=== PATIENT | female | born 1970 | race Caucasian/White ===

== ENCOUNTER 2021-06-09 10:49 | Emergency (ER) | payer BC, OTHER ==
[~2021-06-09 10:49] MED LIST: Iopamidol-370 76% 500 ML 1 ML ONE
[2021-06-09] MEDS ORDERED: Morphine 4 MG/ML VIAL ONE (12:13)
[2021-06-09] MEDS ORDERED: Ondansetron PF 4 MG/2 ML Vial ONE (12:14)
[2021-06-09 12:16] LABS: Bilirubin Negative (Negative); Blood, Urine Negative (Negative); Clarity Clear (Clear); Glucose, Urine (Dipstick) >=1000 mg/dL (Negative); Ketone, Urine Trace mg/dL (Negative); Leukocyte Negative Leu/uL (Negative); Nitrite Negative (Negative); Protein, Urine (Dipstick) Negative (Neg-Trace); Specific Gravity, Urine 1.025 (1.002-1.036); Urobilinogen Normal mg/dL (Less than 2)
[2021-06-09 12:17] LABS: #Eosinphils 0.2 thou/uL (0.0-0.7); #Lymphocytes 2.2 thou/uL (1.20-3.40); #Monocytes 0.6 thou/uL (0.11-0.59); #Neutrophils 6.2 thou/uL (1.40-6.50); %Basophils 0.2 % (0.0-1.0); %Eosinophils 2.5 % (0.0-10.0); %Lymphocytes 23.6 % (21.0-51.0); %Monocytes 6.4 % (0.0-10.0); %Neutrophils 67.3 % (42.0-75.0); Mean Corpuscular HGB CONC 33.9 g/dL (32.0-36.0); Mean Corpuscular Hemoglobin 31.1 pg (27.0-31.0); Mean Corpuscular Volume 91.9 fL (78.0-98.0); Platelet Count 309 thou/uL (130-400); RBC Distribution Width 13.3 % (11.5-14.5); Red Blood Cell (RBC) Count 4.51 mill/uL (4.20-5.40); White Blood Cell (WBC) Count 9.2 thou/uL (4.8-10.8)
[2021-06-09 12:20] LABS: BHCG - Serum Negative (NEGATIVE); Pregs Control Background? CLEAR/WHITE (CLR/WHITE); Pregs Control Bar Appear? YES (CONTROL BAR)
[2021-06-09 12:43] LABS: ALT (SGPT) 37 U/L (8-55); AST (SGOT) 36 U/L (5-34); Albumin 4.2 g/dL (3.5-5.0); Alkaline Phosphatase 89 U/L (40-110); Anion Gap 16 mmol/L (10-20); BUN (Urea Nitrogen) 9 mg/dL (7.0-18.7); Bilirubin, Total 0.3 mg/dL (0.2-1.2); Calc. Creatinine Clearance 0 mL/min (70-130); Calcium 9.6 mg/dL (7.8-10.44); Carbon Dioxide 20 mmol/L (22-29); Chloride 104 mmol/L (98-107); Globulin 3.1 g/dL (2.4-3.5); Glucose 210 mg/dL (70-105); Lipase 19 U/L (8-78); Potassium 3.8 mmol/L (3.5-5.1); Protein, Total 7.3 g/dL (6.0-8.3); Sodium 136 mmol/L (136-145)
[2021-06-09 15:38] LABS: Lactic Acid 1.8 mmol/L (0.5-2.2)
== END 2021-06-09 16:08 | disposition home or self-care (01) ==
LOC: ERS 10:49
DX: K92.1 Melena (principal); K44.9 Diaphragmatic hernia without obstruction or gangrene; R30.0 Dysuria; E11.9 Type 2 diabetes mellitus without complications
CPT/HCPCS: 36415; 74177; 80053; 81003; 83605; 83690; 84703; 85025; 96372; J0500; J2270; J2405; Q9967